=== PATIENT | female | born 1965 | race Two or more races ===

== ENCOUNTER 2019-12-03 21:47 | Emergency (ER) | payer SELFPAY ==
[~2019-12-03] VITALS: Ht 182.9 cm; Wt 68.0 kg
--- NOTE | 2019-12-03 22:00 | NUR ---
NEFTALI FOR EVALUATION OF ETOH. PT WAS FOUNF SLEEPING IN A [employer]. PT CURRENTLY ALERT AND RESDPONSIVE. DENIED ANY PAIN OR DISCOMFORT. NO SOB. PT WSA PLACED ON MONITOR, WILL CONT TO OBSERVE THE PT.
--- NOTE | 2019-12-04 06:30 | NUR ---
Patient provided with a walker and diapers.
--- NOTE | 2019-12-04 06:30 | NUR ---
Patient refused to sign homeless waiver form.
--- NOTE | 2019-12-04 06:30 | NUR ---
Patient states that she is not homeless.
--- NOTE | 2019-12-04 06:30 | NUR ---
Patient discharged to home in stable condition. Written and verbal after care instructions given. Patient verbalizes understanding of instruction.
--- NOTE | 2019-12-04 07:22 | NUR ---
patient provided with warm food per patient request.
[2019-12-04 07:23] VITALS: BP 112/61
--- NOTE | 2019-12-04 07:24 | NUR ---
Patient is ambulatory with walker and has a steady gait.
== END 2019-12-04 07:23 | disposition home or self-care (01) ==
LOC: ER 21:47
DX: R41.82 Altered mental status, unspecified (principal); F10.10 Alcohol abuse, uncomplicated; Y90.9 Presence of alcohol in blood, level not specified
CPT/HCPCS: 70450-TC